=== PATIENT | male | born 1980 | race Caucasian/White ===

== ENCOUNTER 2020-07-03 20:50 | Emergency (ER) | payer BC, OTHER ==
[~2020-07-03] VITALS: Ht 168.9 cm; Wt 54.9 kg
[~2020-07-03 20:50] MED LIST: NPH,100V5 SQ
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
[2020-07-03 22:19] LABS: BASO # 0.1 x10^3/uL (0.0-0.2); BASO % 1 % (0-3); EOS % 0 % (0-3); HEMATOCRIT 36.1 % (39.0-53.0); HEMOGLOBIN 12.2 g/dL (13.0-17.5); LYMPH % 11 % (24-48); MEAN CORPUSCULAR HEMOGLOBIN 32 pg (25-35); MEAN CORPUSCULAR HGB CONC 34 g/dL (31-37); MEAN CORPUSCULAR VOLUME 94 fL (79-100); MONO # 0.6 x10^3/uL (0.0-1.1); MONO % 7 % (0-9); NEUT # 7.7 x10^3/uL (1.8-7.7); NEUT % 82 % (31-73); PLATELET COUNT 313 x10^3/uL (140-400); RED BLOOD COUNT 3.82 x10^6/uL (4.30-5.70); RED CELL DISTRIBUTION WIDTH 13.9 % (11.5-14.5); WHITE BLOOD COUNT 9.4 x10^3/uL (4.0-11.0)
[2020-07-03 22:22] VITALS: BP 160/85
[2020-07-03 22:30] LABS: CALCIUM 8.8 mg/dL (8.5-10.1); CREATININE 1.4 mg/dL (0.7-1.3); GFR 55.8; POTASSIUM 4.4 mmol/L (3.5-5.1)
== END 2020-07-03 22:45 | disposition home or self-care (01) ==
LOC: ER 20:50
DX: E10.649 Type 1 diabetes mellitus with hypoglycemia without coma (principal); Z87.442 Personal history of urinary calculi; F17.220 Nicotine dependence, chewing tobacco, uncomplicated
CPT/HCPCS: 36415; 80048; 82962; 85025; 99283

== ENCOUNTER → 2020-08-28 | Outpatient (CLI) | payer BC ==
[~2020-08-28] MED LIST changes: +GADOTERATE 7.5 MMOL/15ML VIAL. IVP ONE
[2020-08-28 08:42] LABS: CALCIUM 9.1 mg/dL (8.5-10.1); CREATININE 1.1 mg/dL (0.7-1.3); GFR 73.8; POTASSIUM 4.5 mmol/L (3.5-5.1)
--- NOTE | 2020-08-28 12:28 | RAD ---
EXAM: MRI right foot, attention to forefoot DATE: 08/28/2020 8:15 AM CLINICAL HISTORY: Right fifth toe ulceration. COMPARISON: Radiographs 08/21/2020. TECHNIQUE: Multiplanar, multisequence MR imaging of the right foot was performed before and after the administration of IV contrast. FINDINGS: Exam is markedly limited by motion artifact. Within these constraints: There is diffuse T1 marrow signal replacement within the distal phalanx of the great toe with associated small effusion and synovial enhancement of the IP joint. There is also moderate edema without T1 marrow replacement within the proximal phalanx of the great toe. There is diffuse decreased T1 marrow signal within the proximal and distal phalanx of the right small toe with associated marrow edema, best seen on coronal image 9. Small juxta articular erosion at the lateral aspect of this fifth metatarsal neck. Diffuse marrow edema within the intrinsic muscles of the foot, consistent myositis. Visualized flexor and extensor tendons are intact, normal in signal and morphology without tenosynovitis. No discrete enhancing fluid collection is identified. IMPRESSION: 1. Diffuse T1 marrow signal replacement within the distal phalanx of the great toe consistent with osteomyelitis. Associated IP joint effusion and synovitis may be reactive although superimposed septic joint is also a primary consideration. 2. Diffuse T1 marrow signal replacement of the proximal and middle phalanx of the right small toe is also highly suspicious for osteomyelitis. 3. No peripheral enhancing loculated fluid collection or evidence for tenosynovitis. Electronically signed by: Adrian Montelongo MD (08/28/2020 12:24 PM) [id number]
== END ==
LOC: MRI 08:09
PROVIDERS: ATTEND Preventive Medicine Undersea and Hyperbaric Medicine
DX: M25.474 Effusion, right foot (principal); L97.519 Non-pressure chronic ulcer of other part of right foot with unspecified severity; M65.871 Other synovitis and tenosynovitis, right ankle and foot
CPT/HCPCS: 36415; 73720; 80048; A9575

== ENCOUNTER → 2020-09-04 | Outpatient (CLI) | payer BC ==
[~2020-09-04] MED LIST changes: -GADOTERATE 7.5 MMOL/15ML VIAL. IVP ONE
--- NOTE | 2020-09-04 17:28 | RAD ---
Exam: LUDMILA ART STUDY LOWER EXTREM NADIA, DUPLEX LOWER EX ARTERIAL RIGHT History: Reason: NON HEALING WOUND RT 5TH TOE / Comparison: None. Technique: Grayscale, color, and spectral Doppler ultrasound images of the right lower extremity arteries. Findings: Peak systolic velocities (cm/s) and waveforms in the lower extremities: Common femoral artery: 139, triphasic Profunda femoris artery: 73, biphasic Proximal superficial femoral artery: 109, triphasic Mid superficial femoral artery: 115, triphasic Distal superficial femoral artery: 175, triphasic Popliteal artery: 136, triphasic Posterior tibial artery proximally: 80, triphasic Posterior tibial artery distally: 92, triphasic Peroneal artery: 67, triphasic Anterior tibial artery: 72, triphasic Dorsalis pedis artery: 166, biphasic Right LUDMILA: 0.8 Left LUDMILA: 0.8 Impression: 1. Relatively elevated peak systolic velocity in the dorsalis pedis artery could indicate focal stenosis. Otherwise unremarkable velocities and waveforms. 2. LUDMILA of 0.8 bilaterally suggests mild peripheral vascular disease. Electronically signed by: Becca Escudero MD (09/04/2020 5:25 PM) [id number]
== END ==
LOC: US 15:39
PROVIDERS: ATTEND Preventive Medicine Undersea and Hyperbaric Medicine
DX: S91.301A Unspecified open wound, right foot, initial encounter (principal); I73.9 Peripheral vascular disease, unspecified; X58.XXXA Exposure to other specified factors, initial encounter; Y93.89 Activity, other specified; Y92.89 Other specified places as the place of occurrence of the external cause; Y99.8 Other external cause status
CPT/HCPCS: 93922; 93926

== ENCOUNTER → 2020-09-13 | Outpatient (CLI) | payer BC ==
[~2020-09-13] MED LIST changes: +AMOX1TAB10 PO; +ATOR10TA60 PO; +OXYC-325 PO
== END ==
LOC: LAB 14:59
PROVIDERS: ATTEND Surgery Vascular Surgery
DX: Z01.812 Encounter for preprocedural laboratory examination (principal); Z20.828 Contact with and (suspected) exposure to other viral communicable diseases
CPT/HCPCS: U0003

== ENCOUNTER 2020-09-17 06:21 | Day surgery (SDC) | payer BC ==
[~2020-09-17] VITALS: Ht 167.6 cm; Wt 54.4 kg
[~2020-09-17 06:21] MED LIST changes: -AMOX1TAB10 PO; -ATOR10TA60 PO; -OXYC-325 PO
[2020-09-17] MEDS ORDERED: SEVOFLURANE 31 TO 60 MINUTES. IH ONE ×2 (06:22→07:47)
[2020-09-17] MEDS ORDERED: PROPOFOL 10 MG/ML (20ML) VIAL. IV ONE (06:22)
[2020-09-17] MEDS ORDERED: LIDOCAINE 2% PF 5 ML VIAL. ONE (06:22)
[2020-09-17] MEDS: INSULIN LISPRO 100 UNIT/ML 3ML VIAL for OP,RR ONLY. SQ PRN ×2 (07:13→08:19)
[2020-09-17] MEDS ORDERED: ATOR10TA60 PO (07:22)
[2020-09-17] MEDS ORDERED: AMOX1TAB10 PO (07:23)
[2020-09-17] MEDS ORDERED: fentaNYL PF VIAL 100 MCG/2 ML VIAL ONE (07:26)
[2020-09-17 07:30] LABS: BASO # 0.1 x10^3/uL (0.0-0.2); BASO % 1 % (0-3); EOS # 0.4 x10^3/uL (0.0-0.7); EOS % 5 % (0-3); HEMATOCRIT 35.5 % (39.0-53.0); LYMPH # 1.9 x10^3/uL (1.0-4.8); LYMPH % 20 % (24-48); MEAN CORPUSCULAR HEMOGLOBIN 32 pg (25-35); MEAN CORPUSCULAR HGB CONC 34 g/dL (31-37); MEAN CORPUSCULAR VOLUME 93 fL (79-100); MONO # 0.9 x10^3/uL (0.0-1.1); MONO % 9 % (0-9); NEUT # 6.3 x10^3/uL (1.8-7.7); NEUT % 65 % (31-73); PLATELET COUNT 370 x10^3/uL (140-400); RED BLOOD COUNT 3.81 x10^6/uL (4.30-5.70); RED CELL DISTRIBUTION WIDTH 13.7 % (11.5-14.5); WHITE BLOOD COUNT 9.6 x10^3/uL (4.0-11.0)
[2020-09-17] MEDS ORDERED: IV RINGERS,LACTATED 1000ML 1,000 ML IV SCH (07:30)
[2020-09-17 07:47] LABS: CALCIUM 8.4 mg/dL (8.5-10.1); CREATININE 1.2 mg/dL (0.7-1.3); GFR 66.7; POTASSIUM 4.5 mmol/L (3.5-5.1)
[2020-09-17] MEDS ORDERED: DEXAMETHASONE SOD PHOS 4 MG/ML VIAL ONE (07:47)
[2020-09-17] MEDS ORDERED: FAMOTIDINE 20 MG/2 ML VIAL ONE (07:47)
[2020-09-17] MEDS ORDERED: ePHEDrine PF IN SALINE 50 MG/10 ML SYRINGE. IV ONE (07:47)
[2020-09-17] MEDS ORDERED: ONDANSETRON PF 4 MG/2 ML VIAL. ONE (07:47)
--- NOTE | 2020-09-17 07:56 | PDOC4 ---
Operative Note Operative Note Operative Report Dictated Pre-op: right 5th toe open wound with necrotic tissue and exposed bone Post-op:same Surgery: right 5th toe closed ray amputation Surgeon: Karlo Mcdonald MD Anesthesia: general Blood loss: minimal approximately 5ml KARLO MCDONALD MD Sep 17, 2020 07:56
--- NOTE | 2020-09-17 08:09 | OP ---
DATE OF SURGERY: 09/17/2020 SURGEON: Karlo Mcdonald MD PREOPERATIVE DIAGNOSIS: Right fifth toe large open wound with exposed bone and necrotic tissue. POSTOPERATIVE DIAGNOSIS: Right fifth toe large open wound with exposed bone and necrotic tissue. OPERATION PERFORMED: Right fifth toe closed amputation including resection of the metatarsal head. ANESTHESIA USED: General anesthesia. BLOOD LOSS: Minimal, approximately 5 mL. INDICATIONS: The patient is a 39-year-old male who has had a chronic open wound on his right medial aspect of the fifth toe. This extends down to the base and there is exposed bone within the wound and necrotic tissue. There was no surrounding erythema, there is no drainage or purulent fluid from the wound or signs of extending infection in his foot. Attempts have been made with wound care to heal this wound; however, does not done so and has progressively gotten worse. On examination, he has a strong palpable dorsalis pedis pulse. I recommend a right fifth toe amputation, which will likely be done in a closed fashion since there are no signs of significant infection. He is on oral Augmentin and we will continue this after surgery. Informed consent was obtained including the risks of bleeding, infection, need for further surgical debridement or amputation in the future if this does not heal. DETAILS OF THE OPERATION: The patient was brought into the operating room and placed on table in supine position. He received general anesthesia throughout the case by the anesthesiologist. His right foot and ankle were prepped and draped by normal sterile fashion. I made an incision at the base of the fifth toe around the large open wound extending it on to the lateral foot. We dissected through tissue down to the metatarsal bone just proximal to the metatarsal head and transected the bone and removed the toe. I did have to bring the metatarsal bone back within the wound to get back to healthy bone in an area where we could close the incision. We got back to good healthy bone. All tendons were removed. There is no necrotic tissue or signs of infection within the wound after we were finished. There was pulsatile blood flow in the wound bed, which was controlled with electrocautery. We irrigated with copious amounts of antibiotic solution. I then closed the incision with running 3-0 nylon suture. Xeroform was placed over the incision with covered by gauze, a Kerlix wrap and an Vj bandage. He tolerated the surgery with no immediate complications. SPECIMEN REMOVED: Right fifth toe. KARLO MCDONALD MD DR: Eli JOB#: [id number] / [id number]
[2020-09-17] MEDS ORDERED: INSULIN LISPRO 100 UNIT/ML 3ML VIAL for OP,RR ONLY. SQ ONE ×2 (08:20)
[2020-09-17] MEDS ORDERED: OXYC-325 PO (08:39)
[2020-09-17 08:42] VITALS: BP 175/90
--- NOTE | 2020-09-19 23:11 | PATHOLOGY ---
[facility] Accession Number: [id number] . 01 Material submitted: . toe - RIGHT 5TH TOE. Modifiers: right, fifth . 01 Clinical history: . OSTEOMYLITIS . 02 Diagnosis: "Right fifth toe", amputation: - Skin and subcutaneous tissue with acute and chronic inflammation, necrosis, granulation tissue, fibrosis and overlying pseudoepitheliomatous hyperplasia. - Skeletal muscle with acute and chronic inflammation and necrosis. - Decalcified bone with focal acute osteomyelitis. (CLW:hero; 09/19/2020) MBR 09/19/2020 1227 Local . 02 Electronically signed: . Serena Farris MD, Pathologist NPI- [id number] . 01 Gross description: . The specimen is received in formalin, labeled "Petros Mendoza, right fifth toe" and consists of a disarticulated toe measuring 4.6 x 2.1 x 1.8 cm. The nail is present. The skin is pink-kirby with an ulceration on the medial aspect measuring approximately 2.5 x 0.6 cm. The proximal bone margin is a concave smooth articular surface. Sectioning reveals pink to yellow bone cut surfaces and bank representative sections are submitted as follows: . A1: Skin A2-A3: Toe, longitudinal section from proximal to distal following the calcification (SDY; 09/18/2020) SYU/SYU 09/18/2020 1213 Local . 02 Pathologist provided ICD-10: M86.171, L08.9, I96, L92.8, L85.8 . 02 CPT . 033068, 731972 Specimen Comment: A courtesy copy of this report has been sent to [phone] Specimen Comment: Report sent to DR SHAW Performed at: [facility] [address], [place], [place] [id number] MD Lawrence Up MD Phone: [phone] Performed at: [address] [id number] MD Bakari Martinez MD Phone: [phone]
== END 2020-09-17 09:03 | disposition home or self-care (01) ==
LOC: SURG 06:21
PROVIDERS: ATTEND Surgery Vascular Surgery
DX: M86.8X8 Other osteomyelitis, other site (principal); E78.00 Pure hypercholesterolemia, unspecified; K21.9 Gastro-esophageal reflux disease without esophagitis; M19.90 Unspecified osteoarthritis, unspecified site; F41.9 Anxiety disorder, unspecified; E11.42 Type 2 diabetes mellitus with diabetic polyneuropathy; I25.10 Atherosclerotic heart disease of native coronary artery without angina pectoris; Z79.899 Other long term (current) drug therapy; Z98.890 Other specified postprocedural states; Z87.891 Personal history of nicotine dependence; Z88.8 Allergy status to other drugs, medicaments and biological substances
CPT/HCPCS: 28810; 36415; 80048; 82962; 85025; 88305; 88311; A4461; J0690; J1100; J1815; J2405; J2704; J3010; J3490; J7040